=== PATIENT | male | born 1945 | race Caucasian/White ===

== ENCOUNTER 2016-12-13 02:48 | Observation (INO) | payer MEDICARE, OTHER ==
--- NOTE | 2016-12-13 03:13 | ED Physician Documentation ---
PD HPI ABD PAIN - Stated complaint Stated Complaint: ABDOMINAL PAIN - Chief complaint Chief Complaint: Abd Pain - History obtained from History obtained from: Patient - History of Present Illness Timing - onset: Today Timing - details: Gradual onset, Still present Quality: Sharp Location: RLQ Associated symptoms: No: Fever, Nausea, Vomiting, Hematemesis, Diarrhea, Constipation, Dysuria, Hematuria Similar symptoms before: Has not had sx before Recently seen: Not recently seen - Additional information Additional information: Patient is a 70 year old male wiht a history of htn who is presenting to the emergency department for right lower quadrant pain. Patient states that it started about 6 hours ago. Patient stated that he was planking earlier but the only spot that hurts is his right lower quadrant. patient denies nausea, vomiting fever or chills. Review of Systems Constitutional: denies: Fever, Chills Eyes: denies: Decreased vision, Photophobia Ears: denies: Ear pain, Drainage/discharge Nose: denies: Congestion Throat: denies: Sore throat Cardiac: denies: Chest pain / pressure, Palpitations Respiratory: denies: Dyspnea, Cough, Wheezing GI: reports: Abdominal Pain. denies: Nausea, Vomiting, Constipation, Diarrhea : denies: Dysuria, Frequency, Hesitancy, Hematuria Skin: denies: Rash, Lesions Musculoskeletal: denies: Neck pain, Back pain Neurologic: denies: Generalized weakness, Focal weakness, Numbness Immunocompromised: denies: Immunocompromised PD PAST MEDICAL HISTORY - Past Medical History Cardiovascular: Hypertension, Angina Respiratory: None Endocrine/Autoimmune: None GI: None, Other : None HEENT: None Psych: Depression, Anxiety Musculoskeletal: None Derm: None - Past Surgical History General: Other Ortho: Arthroscopic surgery HEENT: Tonsil/Adenoidectomy - Present Medications Home Medications: Ambulatory Orders Medication Instructions Recorded Confirmed Aspirin 81 mg PO DAILY 01/04/13 12/13/16 Lisinopril/Hydrochlorothiazide 1 each PO DAILY 01/04/13 12/13/16 [Lisinopril-Hctz 10-12.5 mg Tab] Atorvastatin [Lipitor] 20 mg PO 12/13/16 - Allergies Allergies/Adverse Reactions: Allergies Allergy/AdvReac Type Severity Reaction Status Date / Time Penicillins Allergy Unknown UNK Verified 12/13/16 02:58 PD ED PE NORMAL - Vitals Vital signs reviewed: Yes - General General: Alert and oriented X 3 - HEENT HEENT: Atraumatic, PERRL - Neck Neck: Supple, no meningeal sign - Cardiac Cardiac: RRR, No murmur - Respiratory Respiratory: No respiratory distress, Clear bilaterally - Male Male : Other (normal) - Derm Derm: Normal color, Warm and dry, No rash - Extremities Extremities: No deformity, No tenderness to palpate, Normal ROM s pain - Neuro Neuro: Alert and oriented X 3, toolmaker 2-12 intact, No motor deficit, No sensory deficit, Normal speech - Psych Psych: Normal mood, Normal affect PD ED PE EXPANDED - Abdomen Abdomen: Tender to palpation, Guarding, RLQ. No: Rebound Results - Vitals Vitals: Vital Signs - 24 hr 12/13/16 02:55 Heart Rate 113 H Respiratory 18 Rate Blood Pressure 134/81 H O2 Saturation 100 Oxygen O2 Source Room air - Labs Labs: Laboratory Tests 12/13/16 12/13/16 03:20 03:20 WBC 13.3 H RBC 4.43 L Hgb 13.4 L Hct 39.2 L MCV 88.7 MCH 30.2 MCHC 34.1 RDW 13.5 Plt Count 202 MPV 7.7 Neut # 10.5 H Lymph # 1.5 [place] # 1.1 H Eos # 0.0 Baso # 0.1 Absolute Nucleated RBC 0.00 Nucleated RBC % 0.0 Sodium 132 L Potassium 4.3 Chloride 98 L Carbon Dioxide 26 Anion Gap 8.0 BUN 20 Creatinine 0.8 Estimated GFR (MDRD) 96 Glucose 128 H Calcium 8.9 Total Bilirubin 0.9 AST 28 ALT 29 Alkaline Phosphatase 51 Total Protein 7.1 Albumin 4.1 Globulin 3.0 Albumin/Globulin Ratio 1.4 Lipase 19 L PD MEDICAL DECISION MAKING - ED course Complexity details: reviewed old records, reviewed results, re-evaluated patient , considered differential, d/w patient, d/w treasury management sales consultant ED course: Patient was seen and examined at bedside. IV access was gained and labs were drawn. patient was sent for imaging. when patient returned the results were reviewed. there was an acute appendicitis found with mild leukocytosis. Case was discussed with oncall surgeon, Dr. Anderson who admitted the patient for surgery later today. Departure - Departure Disposition: [facility] DC/Xfer Clinical Impression: Appendicitis Condition: Stable
[2016-12-13 03:30] LABS: BASOPHILS # (AUTO) 0.1 10^3/uL (0.0-0.1); BASOPHILS % (AUTO) 0.6 %; EOSINOPHILS % (AUTO) 0.3 %; HCT - HEMATOCRIT 39.2 % (42.0-52.0); HGB - HEMOGLOBIN 13.4 g/dL (14.0-18.0); LYMPHOCYTES # (AUTO) 1.5 10^3/uL (1.5-3.5); LYMPHOCYTES % (AUTO) 11.4 %; MEAN CORPUSCULAR HEMOGLOBIN 30.2 pg (27.0-31.0); MEAN CORPUSCULAR HGB CONC 34.1 g/dL (32.0-36.0); MEAN CORPUSCULAR VOLUME 88.7 fL (80.0-94.0); MEAN PLATELET VOLUME 7.7 fL (7.4-11.4); MONOCYTES # (AUTO) 1.1 10^3/uL (0.0-1.0); MONOCYTES % (AUTO) 8.1 %; NEUTROPHILS # (AUTO) 10.5 10^3/uL (1.5-6.6); NEUTROPHILS % (AUTO) 79.6 %; RED BLOOD COUNT 4.43 10^6/uL (4.70-6.10); RED CELL DISTRIBUTION WIDTH 13.5 % (12.0-15.0); UNCORRECTED WHITE BLOOD COUNT 13.3 x10^3/uL; WHITE BLOOD COUNT 13.3 x10^3/uL (4.8-10.8)
[2016-12-13 03:43] LABS: ALBUMIN/GLOBULIN RATIO 1.4 (1.0-2.2); BILIRUBIN,TOTAL 0.9 mg/dL (0.2-1.0); CALCIUM 8.9 mg/dL (8.5-10.3); CREATININE 0.8 mg/dL (0.6-1.2); POTASSIUM 4.3 mmol/L (3.5-5.0); TOTAL PROTEIN 7.1 g/dL (6.7-8.2)
[2016-12-13] MEDS ORDERED: IOPAMIDOL-300 100 ML VIAL ONE (03:53)
[2016-12-13] MEDS ORDERED: IOPAMIDOL-300 100 ML VIAL IVP ONE (04:04)
--- NOTE | 2016-12-13 04:27 | CT Preliminary Report ---
Exam: CT Abdomen/Pelvis W/ IMPRESSION: 1. Appendicitis measuring up to 13 mm in diameter. No abscess seen. 2. Moderate to large amount of stool in the colon. [facility] SITE ID: [id number]
--- NOTE | 2016-12-13 04:30 | CT Report ---
EXAM: CT ABDOMEN AND PELVIS EXAM DATE: 12/13/2016 04:12 AM. CLINICAL HISTORY: Right lower quadrant tenderness. COMPARISONS: None. TECHNIQUE: Routine helical CT imaging was performed through the abdomen and pelvis. IV contrast: [place] onic. Enteric contrast: No. Reconstructions: Coronal and sagittal. In accordance with CT protocol optimization, one or more of the following dose reduction techniques w ere utilized for this exam: automated exposure control, adjustment of mA and/or KV based on patient s ize, or use of iterative reconstructive technique. FINDINGS: Lung Bases: Bibasilar atelectasis. Liver: Subcentimeter right lobe cyst. Gallbladder/Bile Ducts: Unremarkable. Spleen: Normal. Pancreas: Normal. Adrenal Glands: Normal. Kidneys: Small left renal cyst. No masses or hydronephrosis. Peritoneal Cavity/Bowel: Moderate to large amount of stool in the colon. No diverticulitis. No small bowel obstruction. No lymphadenopathy. No free air or free fluid. Dilated inflamed appendix measuring 13 mm. Appendicoliths are seen. No periappendiceal abscess. Pelvic Organs: Normal. The bladder and visualized pelvic organs are within normal limits. Vasculature: Mild to moderate atherosclerosis. No aortic aneurysm. Bones: Degenerative changes in the spine. Other: None. IMPRESSION: 1. Appendicitis measuring up to 13 mm in diameter. No abscess seen. 2. Moderate to large amount of stool in the colon. [facility] Referring Provider Line: [phone] SITE ID: [id number]
[2016-12-13] MEDS ORDERED: HYDROmorphone 1 MG/ML SYRINGE IVP PRN (04:48)
[2016-12-13] MEDS ORDERED: ONDANSETRON 4 MG/2 ML VIAL IVP PRN (04:48)
[2016-12-13] MEDS ORDERED: SODIUM CHLORIDE FLUSH 0.9% 10 ML SYRINGE IVP PRN (04:48)
[2016-12-13] MEDS ORDERED: cefOXitin 1 GM in SODIUM CHLORIDE 0.9% MINIBAG 100 ML IV SCH (04:48)
[2016-12-13] MEDS ORDERED: D5NS W/20 MEQ KCL 1,000 ML IV SCH (05:00)
[2016-12-13] MEDS ORDERED: SODIUM CHLORIDE FLUSH 0.9% 10 ML SYRINGE IVP SCH (06:00)
[2016-12-13] MEDS ORDERED: PANTOPRAZOLE 40 MG VIAL IVP SCH (07:00)
--- NOTE | 2016-12-13 10:11 | HISTORY & PHYSICAL EXAMINATION ---
DATE OF ADMISSION: 12/13/2016 ADMITTING PHYSICIAN: Antonio Anderson MD. REASON FOR ADMISSION: Abdominal pain. HISTORY OF PRESENT ILLNESS: This is a 70-year-old gentleman who presented to the emergency department yesterday late in the evening after developing mid abdominal pain located at his umbilicus, which radiated to the right lower quadrant. Upon evaluation in the emergency department, labs and a CT scan were performed. He was noted to have a slight leukocytosis and CT scan findings consistent with unruptured acute appendicitis. On my evaluation of the patient, he states his pain is about a 2/10. His last meal was 6 p.m. last night. He also had chills at home, but has been afebrile in the hospital. Denies any history of nausea or vomiting. He was feeling fine up until 9 p.m. yesterday. PAST MEDICAL HISTORY: Significant for history of pericarditis 4 years ago of unknown etiology, arthritis, hypertension, and hypercholesterolemia. PAST SURGICAL HISTORY: Multiple knee arthroscopies bilaterally. SOCIAL HISTORY: The patient denies tobacco use, alcohol use, or illicit drug use. The patient lives independently. HOME MEDICATIONS 1. Lisinopril 10 mg p.o. daily. 2. Hydrochlorothiazide 12.5 mg p.o. daily. 3. Aspirin 81 mg daily. ALLERGIES TO MEDICATIONS: PENICILLIN. PHYSICAL EXAMINATION VITAL SIGNS: Temperature is 36.9, blood pressure 126/70, respiratory rate 17, O2 saturation is 97% on room air, heart rate is 89. GENERAL: The patient is awake, alert, oriented x3, in no acute distress. He is of average build. CARDIOVASCULAR: Regular rate and rhythm. CHEST: Clear to auscultation bilaterally. No rhonchi or wheezing. ABDOMEN: Soft and nondistended. He is slightly tender to palpation in the right lower quadrant with no guarding and no rigidity. EXTREMITIES: Nonedematous. LABORATORY VALUES: White count 13.3, hemoglobin 13.4, hematocrit 39.2, platelets 202. Sodium 132, potassium 4.3, chloride 98, bicarbonate 26, BUN 20, creatinine 0.8. ASSESSMENT: This is a 70-year-old gentleman with acute appendicitis. PLAN: The patient will be taken to the operating room for laparoscopic, possible open appendectomy. The procedure was explained to the patient in detail including the potential risks involved including, but not limited to bleeding, infection and damage to intra-abdominal structures. He understands all of the above and agrees to proceed. JOB #: [id number] EXT JOB #:[id number] GRACIE
[2016-12-13] MEDS ORDERED: LACTATED RINGERS 1,000 ML IV ONE ×2 (10:20→11:15)
[2016-12-13] MEDS ORDERED: BUPIVACAINE 0.5%-EPI 1:200000 PF 30 ML VIAL SUBQ ONE (10:52)
[2016-12-13] MEDS ORDERED: NEOSTIGMINE 1 MG/1 ML 10 ML MDV IVP ONE (11:00)
[2016-12-13] MEDS ORDERED: DEXAMETHASONE 4 MG/ML VIAL IVP ONE (11:00)
[2016-12-13] MEDS ORDERED: ACETAMINOPHEN 1,000 MG/100 ML 100 ML IV ONE (11:00)
[2016-12-13] MEDS ORDERED: PROPOFOL 200 MG/20 ML VIAL IVP ONE (11:00)
[2016-12-13] MEDS ORDERED: ROCURONIUM 50 MG/5 ML VIAL IVP ONE (11:00)
[2016-12-13] MEDS ORDERED: ceFAZolin 1 GM VIAL IV ONE (11:00)
[2016-12-13] MEDS ORDERED: LIDOCAINE-MPF 2% 5 ML VIAL IM ONE (11:00)
[2016-12-13] MEDS ORDERED: fentaNYL 100 MCG/2 ML VIAL IVP ONE (11:00)
[2016-12-13] MEDS ORDERED: SUCCINYLCHOLINE 200 MG/10 ML VIAL IVP ONE (11:00)
[2016-12-13] MEDS ORDERED: GLYCOPYRROLATE 1 MG/5 ML VIAL IVP ONE (11:00)
[2016-12-13] MEDS ORDERED: ONDANSETRON 4 MG/2 ML VIAL IVP ONE (11:00)
[2016-12-13] MEDS ORDERED: MIDAZOLAM 2 MG/2 ML VIAL IVP ONE (11:00)
[2016-12-13 11:09] LABS: BILIRUBIN,URINE NEGATIVE (NEGATIVE); PH,URINE 8.5 PH (5.0-7.5); UA CHARGE (STRIP ONLY) YES; UR CULTURE IF IND NOT INDICATED
[2016-12-13] MEDS ORDERED: oxyCOD/ACETAMIN 5 MG/325 MG TABLET PO PRN (11:23)
--- NOTE | 2016-12-13 11:26 | Discharge Plan ---
Discharge Plan Disposition: 01 Home, Self Care Condition: Stable Prescriptions: oxyCODONE/ACET 5/325 [Percocet 5 mg/325 mg] 1 tab PO Q4HR PRN #20 tablet PRN Reason: Pain Diet: Regular Activity Restrictions: see handout No Smoking: If you smoke, Please STOP! Call for help. Follow-up with: SUSAN VICK MD [Provider Admit Priv/Credential] - 4 Weeks
[2016-12-13 13:18] VITALS: BP 114/70
--- NOTE | 2016-12-14 09:50 | OPERATIVE REPORT ---
DATE OF SURGERY: 12/13/2016 00:00:00 PREOPERATIVE DIAGNOSIS: Acute appendicitis. POSTOPERATIVE DIAGNOSIS: Acute appendicitis. PROCEDURE PERFORMED: Laparoscopic appendectomy. SURGEON: Jeni Romero MD ANESTHESIA PROVIDER: Andrade Gunn. INDICATION FOR PROCEDURE: This is a 70-year-old male who presented to the emergency department yesterday with a 1-day history of abdominal pain and CT scan findings consistent with acute appendicitis. FINDINGS: After obtaining informed consent from the patient, he was brought into the operating room and positioned on the operating table in the supine position, taking note of pressure points. He was intubated by Anesthesia. He was then prepped and draped in the usual sterile fashion, and a timeout was taken according to protocol. An infraumbilical 1 cm incision was created and deepened down to the umbilical stalk. This was grasped and elevated and the Veress needle inserted. The abdominal cavity was insufflated. A 5 mm incision was created in the left lower quadrant and the Optiview trocar utilized to enter the abdominal cavity. The Veress needle was removed and exchanged for a 12 mm port. The underlying peritoneum was visualized, and there was no injury upon entrance into the abdominal cavity. A 3rd 5 mm port was placed in the suprapubic region. The patient was positioned in Trendelenburg with the right side elevated and the appendix identified. It was noted to be very inflamed with surrounding phlegmon. The appendix was difficult to grasp. I rotated it medially and the appendiceal attachments from the lateral sidewall with the LigaSure. The appendix was noted to be inflamed all the way down to its base. There was some purulent fluid exposed while mobilizing the appendix. The mesoappendix was then divided using the LigaSure and the base of the appendix completely exposed. The 45 mm [place] stapling device was utilized to amputate the appendix. It was placed in a specimen bag and removed through the umbilical port. The mesoappendix and staple line were inspected, and staple line appeared to be intact without any signs of bleeding. All purulent fluid was completely evacuated. The Steve-Ilene device was then used to close the umbilical fascial defect using a 0 figure-of-8 Vicryl suture. The abdominal cavity was allowed to desufflate, and the skin incisions were closed with 4-0 Monocryl; 20 mL of local anesthetic was utilized. ESTIMATED BLOOD LOSS: 5 mL. COMPLICATIONS: None. SPECIMEN: Appendix. JOB #: [id number] EXT JOB #:[id number] MTDMorena
--- NOTE | 2016-12-21 12:56 | PROVIDER PROGRESS NOTE ---
Subjective - Prog Note Date Prog Note Date: 12/13/16 - Subjective Pt reports feeling: Improved Objective - Vital Signs/Intake & Output Reviewed Vital Signs: Yes - Objective General Appearance: positive: No acute distress Respiratory: positive: No respiratory distress Cardiovascular: positive: Regular rate & rhythm Abdomen: positive: Other (appropriate post surgical abdomen) Extremities: positive: No pedal edema Neurologic/Psychiatric: positive: Oriented x3 - Lab Results Fish Bones: 12/13/16 03:20 12/13/16 03:20 Assessment/Plan - Problem List (1) Appendicitis Impression: Discharge home once recovered
== END 2016-12-13 15:00 | disposition home or self-care (01) ==
LOC: ED 02:48 → OBS 04:48
PROVIDERS: ADMIT Surgery; ATTEND Surgery
PROC: 0DTJ4ZZ Resection of Appendix, Percutaneous Endoscopic Approach (ICD-10-PCS; principal; 2016-12-13 09:25)
DX: K35.89 Other acute appendicitis (principal); I10 Essential (primary) hypertension; E78.00 Pure hypercholesterolemia, unspecified; M19.90 Unspecified osteoarthritis, unspecified site; Z86.79 Personal history of other diseases of the circulatory system; Z79.82 Long term (current) use of aspirin; Z79.899 Other long term (current) drug therapy; F32.9 Major depressive disorder, single episode, unspecified; F41.9 Anxiety disorder, unspecified
CPT/HCPCS: 36415; 44970; 74177; 80053; 81003; 83690; 85025; 88304; 96365; 96375; 99283; 99284; A9270; G0378; J0131; J7120; Q9967; 81001; 87086

== ENCOUNTER 2017-02-21 11:48 | Outpatient (CLI) | payer MEDICARE, OTHER ==
--- NOTE | 2017-02-22 10:53 | XRAY Report ---
EXAM: LUMBOSACRAL SPINE RADIOGRAPHY EXAM DATE: 02/21/2017 12:40 PM. CLINICAL HISTORY: NUMBNESS L PLANTAR FOOT WITH PROLONGED STANDING. COMPARISONS: Abdominal pelvic CT 12/13/2016. TECHNIQUE: 3 views. FINDINGS: Alignment: Normal. No spondylolisthesis or scoliosis. Bones: 6 nmg-ife-grxfnca lumbar vertebral bodies are present, the lowest lumbar shaped vertebral body will be labeled L5. No fractures or bone lesions. Disks: Moderate to severe loss of L5-S1 disk space. Mild loss of disk space height at L3-L4 and L4-L5 levels. Small anterior osteophytes throughout the lumbar spine, sparing L4-L5 level. Facets: Normally aligned. Mild L5-S1 facet hypertrophy. Sacroiliac Joints: Unremarkable. Soft Tissues: Prominent stool within right hemicolon. No dilated bowel evident. Atherosclerotic abdom inal aortic calcifications. IMPRESSION: 1. Prominent L5-S1 degenerative changes. 2. No fracture evident. [facility] Referring Provider Line: [phone] SITE ID: [id number]
== END 2017-02-21 11:49 | disposition home or self-care (01) ==
LOC: DI 11:48
PROVIDERS: ATTEND Family Medicine
DX: M47.897 Other spondylosis, lumbosacral region (principal)
CPT/HCPCS: 72100

== ENCOUNTER 2017-03-22 08:47 | Outpatient (CLI) | payer MEDICARE, OTHER ==
--- NOTE | 2017-03-22 12:12 | MRI Report ---
EXAM: MRI LUMBAR SPINE WITHOUT CONTRAST EXAM DATE: 03/22/2017 09:31 AM. CLINICAL HISTORY: Neural claudication. COMPARISON: Lumbar spine radiographs 02/21/2017. TECHNIQUE: Multiplanar, multisequence T1-weighted and fluid-sensitive sequences of the lumbar spine w ithout contrast. Other: None. FINDINGS: A tiny 3 mm T2 hyperintensity is seen in the lower pole of the left kidney. Statistically, this likel y reflects a tiny cortical cyst. The visualized abdominal aorta is not aneurysmal. On the comparison radiographs there are 6 uxs-agw-phrigmy lumbar-type vertebral bodies. For numbering purposes, the first eoi-yod-toorlqi lumbar-type vertebral body will be labeled as S1. This numbering scheme makes the transitional lumbosacral type vertebral body. No suspicious marrow replacement is identified in the lumbar vertebral bodies. Diskogenic marrow edema is seen at L6-S1. Grade 1 retrolisthesis of L6 relative to S1 and L4 relative to L5 is noted. The distal tip of the conus medullaris is seen near the L2-L3 disk space level. T10-T11 and T11-T12: No posterior disk protrusion. T12-L1: A mild right paracentral disk protrusion is seen. There is no central canal or foraminal sten osis on the sagittal views. L1-L2: No posterior disk protrusion. L2-L3: A mild posterior disk protrusion is seen. Superior lateral recess narrowing is present bilater ally. L3-L4: A minimal posterior disk protrusion is seen. There is a shallow foraminal and far lateral comp onent bilaterally, greater on the left relative to the right. Disk material attenuates the fat surrou nding the left L3 nerve root after it exits its foramen. No overt foraminal stenosis is present. Supe rior lateral recess narrowing is present bilaterally. No central canal stenosis. L4-L5: A mild posterior disk protrusion is seen. There is a shallow posterolateral and foraminal comp onent bilaterally. There is proximal foraminal narrowing bilaterally without overt foraminal stenosis . There is a far lateral component of the disk protrusion bilaterally. Superior lateral recess narrow ing is present bilaterally. No central canal stenosis. L5-L6: A minimal posterior disk protrusion is seen with a shallow foraminal component bilaterally. Pr oximal foraminal narrowing is seen bilaterally. No central canal or foraminal stenosis is present. [place]ade perior lateral recess narrowing is seen bilaterally. L6-S1: Moderate loss of disk space height is present. A mild posterior disk protrusion is seen. There is a shallow foraminal protrusion bilaterally. No central canal or lateral recess stenosis is presen t. There is moderate to severe left and moderate right foraminal stenosis. Facet/ligamentum flavum hypertrophy is seen throughout the lumbar spine, greatest in the mid and lowe r lumbar spine. IMPRESSION: 1. Degenerative disk disease is present at multiple levels discussed in detail. 2. No central canal stenosis. 3. Bilateral foraminal stenosis is present at L6-S1. 4. There is a far lateral component to the protrusion on the left at L3-L4 with disk material attenua ting the fat surrounding the left L3 nerve root after it exits its foramen. 5. Diskogenic marrow edema is seen at L6-S1 and there is spondylolisthesis at this level. 6. Ambiguous segmentation of the lumbar spine with the numbering scheme discussed above. Comment: The following findings are so common in adults without low back pain that while we report th eir presence, they must be interpreted with caution and in the context of the clinical situation. (Re jovon Pelaez et al, Spine 2001) Prevalence of findings in patients without low back pain: Disk degeneration (any evidence): 92% Disk desiccation/T2 signal loss: 83% Disk height loss: 56% Disk bulge: 64% Disk protrusion: 32% Annular tear/high intensity zone: 38% [facility] Referring Provider Line: [phone] SITE ID: [id number]
== END 2017-03-22 08:48 | disposition home or self-care (01) ==
LOC: DI 08:47
PROVIDERS: ATTEND Internal Medicine
DX: M51.26 Other intervertebral disc displacement, lumbar region (principal); M51.25 Other intervertebral disc displacement, thoracolumbar region; M51.36 Other intervertebral disc degeneration, lumbar region; M43.17 Spondylolisthesis, lumbosacral region
CPT/HCPCS: 72148

== ENCOUNTER 2021-01-13 07:34 | Outpatient (CLI) | payer MEDICARE, OTHER ==
--- NOTE | 2021-01-13 09:53 | CARDIAC PROCEDURE NOTE ---
Stress Test Report Service Date: 01/13/21 Service Time: 09:00 Ordering Provider: Kavya Gaona PA-C Indication for Test: Assess episodic non-exertional left upper chest discomfort. Significant Medical History: -Gigi reports a history of hypertension treated for the past 20-25 years and has been on statin therapy chronically, to lower cholesterol. He has been very active, walking around [facility] (with hills), a total of 4-7 miles almost every day. About 3-4 weeks ago he began to experience an episodic, mild, non- exertional left upper chest discomfort, that has had no identifiable pattern of occurrence, no triggers and no alleviating factors. There have been no associated concomitants with the discomfort, such as dyspnea, diaphoresis, nausea or lightheadedness. He was seen in clinic and a treadmill stress test was ordered for today, but he reports that the discomfort has been less evident for the past week or 2, almost nonexistent. However on further questioning prior to starting the test he admits to feeling it at a level of "one half out of 10". -He has a cardiac history that includes an episode of pericarditis about 8 years ago, for which he underwent a coronary angiogram at [facility] in [place], that revealed a single vessel with 20% narrowing. He is concerned about the fact that his father experienced complex CAD at about the same age he is now, requiring bypass surgery and valve replacement. He feels that his lifestyle has been healthy, given his high exercise level and a diet that is low in red meat, while continuing on fish oil and simvastatin chronically. He does not monitor his blood pressure at home, though he believes it has been controlled at clinic visits. Cardiac Risk Factors: Positive for age, male gender, hypertension, hyperlipidemia and CAD in his father; negative for diabetes or tobacco use, ever. Type of Stress Test: Exercise Treadmill Test (ETT) Procedure: -Exercise Treadmill Test- After signing informed consent, the patient performed treadmill exercise using a Guillermo protocol. The patient exercised for 9 minutes 19 seconds and achieved a peak heart rate of 152 (104 percent predicted maximum heart rate for age), and an estimated workload of 10.7 METS. The test was terminated due to fatigue/shortness of breath, occurring after he achieved target HR. Resting heart rate: 76 Peak heart rate: 152 Normal response to exercise. Resting BP: 148/77 Peak BP: 199/91 Mildly hypertensive at rest with physiologic BP response to exercise. Note that he last took his HCTZ and lisinopril last evening. Rhythm during exercise: Sinus rhythm with rare isolated PVCs. Symptoms: Early in exercise he reported that the mild left upper chest discomfort presesnt at test onset had fully resolved; in stage 4 he described a different, mild discomfort lower down in his left chest, around the level of his left nipple. This discomfort resolved almost immediately following conclusion of exercise. EKG at rest showed normal sinus rhythm, with left atrial abnormality and low precordial QRS voltages; QRS/ST/T morphologies were normal throughout the tracing. EKG at peak stress showed J-point depression with mostly upsloping ST depression in inferior and anterolateral leads, probably maximal at about 0.7 mm; in the setting of the different, more typical lower left chest discomfort these should be considered borderline positive for ischemia. In Recovery heart rate and blood pressure returned normally to baseline levels. No imaging was ordered with this stress test. I, Dany Mercado MD, was present throughout this treadmill exercise test and supervised it in its entirety. Summary: 1) Exercise tolerance well above average for age, as evidenced by CHERIE of -48%. 2) Normal resting EKG. 3) Adequate level of exercise was achieved on this treadmill stress test. 4) Mildly hypertensive at rest with physiologic BP response to exercise. 5) Borderline ischemic changes by EKG criteria were seen at peak stress. 6) No imaging was ordered with this test. CONCLUSIONS: 1) [place] did not experience the atypical upper left chest discomfort that prompted this ETT; however, he did experience very mild discomfort of more typical character during stage 4, that resolved nearly immediately with exercise discontinuation. He stated that the intensity of exercise during stage 4 was above what he would likely ever achieve during his extensive walking. 2) I recommended that he: continue ASA 81 mg at least every other day; obtain an arm BP cuff with which to measure and record blood pressures at several assessments in the mornings prior to taking BP medications, and again 10-12 hours later; and pay careful attention to whether there is recurrence of the more typical left lower chest discomfort and report any occurrence of this symptom if it recurs. He should make an appointment with Dr. Burden in 3-4 weeks, at which time they can review interim symptoms, lab results and adequacy of blood pressure control. I would recommend that his LDL cholesterol be targeted to the range of 5060 mg/dL, which may require transition to a high potency statin. 3) Should there be concern for recurrence of the more typical exertional chest discomfort, then a stress test with imaging (with echo or myocardial perfusion study) would be advisable.
--- NOTE | 2021-01-13 14:47 | CARDIAC PROCEDURE NOTE ---
Stress Test Report Indication for Test: DOCUMENT ORDERED IN ERROR, PLEASE DISREGARD.
== END 2021-01-13 07:35 | disposition home or self-care (01) ==
LOC: DI 07:34
PROVIDERS: ATTEND Physician Assistant
DX: R07.89 Other chest pain (principal); R53.83 Other fatigue; I10 Essential (primary) hypertension; Z82.49 Family history of ischemic heart disease and other diseases of the circulatory system
CPT/HCPCS: 93017

== ENCOUNTER 2023-01-10 13:34 | Outpatient (CLI) | payer MEDICARE, OTHER ==
--- NOTE | 2023-01-10 16:14 | XRAY Report ---
PROCEDURE: Hand 3 View BILAT INDICATIONS: BILAT HAND PAIN TECHNIQUE: 3 views of the hand(s) acquired. COMPARISON: None. FINDINGS: Bones: No fractures or dislocations. No suspicious bony lesions. There is overall appearance of m ild scattered IP degenerative narrowing. No erosions. No definitive osteophytes. Soft tissues: No suspicious soft tissue calcifications or masses. IMPRESSION: Scattered mild IP arthritic change. Reviewed by: Jackie Duke MD on 01/10/2023 4:13 PM PDT Approved by: Jackie Duke MD on 01/10/2023 4:13 PM PDT Station ID: [id number]
== END 2023-01-10 13:35 | disposition home or self-care (01) ==
LOC: DI 13:34
PROVIDERS: ATTEND Internal Medicine
DX: M65.332 Trigger finger, left middle finger (principal); M19.042 Primary osteoarthritis, left hand; M19.041 Primary osteoarthritis, right hand